=== PATIENT | male | born 1970 | race Caucasian/White ===

== ENCOUNTER 2019-03-15 13:13 | Emergency (ER) | payer OTHER ==
[2019-03-15 13:21] VITALS: BP 146/84
--- NOTE | 2019-03-15 13:37 | ED Physician Documentation ---
PD HPI UPPER EXT INJURY - Stated complaint Stated Complaint: LFT PRITI PX - Chief complaint Chief Complaint: Ext Problem - History obtained from History obtained from: Patient - History of Present Illness Location: Left (This is a right-handed gentleman who works at an [employer]. He works in the [employer] department. A tire was falling today and he caught it with his left arm and since then has had moderate pain across the top and the back of the left shoulder with difficulty moving it. He declines pain medication initial evaluation. He has no history of problems with the left shoulder.) Review of Systems Constitutional: reports: Reviewed and negative Nose: reports: Reviewed and negative Throat: reports: Reviewed and negative PD PAST MEDICAL HISTORY - Present Medications Home Medications: Ambulatory Orders Medication Instructions Recorded Confirmed Hydrocodone/Acetaminophen 1 - 2 each PO Q6H PRN #14 tablet 03/15/19 [Hydrocodon-Acetaminophen 5-325] - Allergies Allergies/Adverse Reactions: Allergies Allergy/AdvReac Type Severity Reaction Status Date / Time No Known Drug Allergies Allergy Verified 03/15/19 13:21 PD ED PE NORMAL - Vitals Vital signs reviewed: Yes - General General: Alert and oriented X 3, No acute distress - Extremities Extremities: Other (Left shoulder is without deformity. He has mild tenderness across the top and posterior of the left shoulder. He is able to abduct it to almost 90 degrees actively, further passively. He has positive supraspinatus testing and pain with forced internal and external rotation.) - Neuro Neuro: Alert and oriented X 3, Normal speech Results - Vitals Vitals: Vital Signs - 24 hr 03/15/19 13:17 Temperature 36.3 C L Heart Rate 79 Respiratory 16 Rate Blood Pressure 146/84 H O2 Saturation 99 Oxygen O2 Source Room air - Rads (name of study) L shoulder 3v Radiology: EMP read contemporaneously (normal) Departure - Departure Disposition: 01 Home, Self Care Clinical Impression: Injury of left rotator cuff Qualifiers: Encounter type: initial encounter Qualified Code(s): S46.002A - Unspecified injury of muscle(s) and tendon(s) of the rotator cuff of left shoulder, initial encounter Condition: Good Record reviewed to determine appropriate education?: Yes Instructions: ED Torn Rotator Cuff Follow-Up: [facility] [Provider Group] - Within 1 week Prescriptions: Hydrocodone/Acetaminophen [Hydrocodon-Acetaminophen 5-325] 1 - 2 each PO Q6H PRN #14 tablet PRN Reason: pain Comments: Do the exercises as discussed to prevent frozen shoulder. Return for new or worsening symptoms. Follow-up with the orthopedic surgeons, call Sunday for an appointment. You can take Tylenol or ibuprofen per package instructions for pain. Forms: Activity restrictions
--- NOTE | 2019-03-15 14:09 | XRAY Report ---
Reason: shoulder inkj Procedure Date: 03/15/2019 Accession Number: [id number] / [id number] Procedure: XR - Shoulder 3 View LT CPT Code: FULL RESULT: EXAM: LEFT SHOULDER RADIOGRAPHY EXAM DATE: 03/15/2019 01:54 PM. CLINICAL HISTORY: Shoulder injury with pain COMPARISON: None. TECHNIQUE: 3 views. FINDINGS: Bones: Normal. No fracture or bone lesion. Joints: The glenohumeral and acromioclavicular joints are normal. Soft tissues: The visualized hemithorax is unremarkable. No soft tissue swelling. IMPRESSION: Negative. RADIA
== END 2019-03-15 14:44 | disposition home or self-care (01) ==
LOC: ED 13:13
DX: S46.002A Unspecified injury of muscle(s) and tendon(s) of the rotator cuff of left shoulder, initial encounter (principal); X50.1XXA Overexertion from prolonged static or awkward postures, initial encounter; Y93.89 Activity, other specified; Y99.0 Civilian activity done for income or pay
CPT/HCPCS: 1040M; 73030; 99283

== ENCOUNTER 2019-08-08 16:21 | Emergency (ER) | payer OTHER ==
[2019-08-08 16:41] VITALS: BP 134/74
[2019-08-08] MEDS ORDERED: traMADol 50 MG TABLET PO STA (17:01)
--- NOTE | 2019-08-08 17:07 | ED Physician Documentation ---
PD HPI UPPER EXT INJURY - Stated complaint Stated Complaint: SHOULDER PX - Chief complaint Chief Complaint: Ext Problem - History obtained from History obtained from: Patient, Family () - History of Present Illness Location: Left, Shoulder Timing - onset: Today Worsened by: Moving Associated symptoms: Numbness. No: Weakness Similar symptoms before: Diagnosis (Left rotator cuff injury.) - Additonal information Additional information: The patient is a 48-year-old male who presents with pain in his left shoulder. He initially injured it 5 months ago when he caught a falling tire with his left arm. He was diagnosed with rotator cuff injury at that time. He has since been undergoing physical therapy, with some improvement. He reinjured it 3 weeks ago while at work. Today he was buckling his belt when he developed recurrent pain in his shoulder, and it has persisted since that time. He had tingling in his fingers initially, but that has since resolved. He is right hand dominant. Review of Systems Constitutional: denies: Fever Nose: denies: Congestion Cardiac: denies: Chest pain / pressure Respiratory: denies: Dyspnea Musculoskeletal: reports: Joint pain (Left shoulder.). denies: Neck pain, Back pain Neurologic: denies: Focal weakness, Numbness, Headache PD PAST MEDICAL HISTORY - Past Medical History Musculoskeletal: Other (Left rotator cuff injury.) - Past Surgical History Past Surgical History: No - Present Medications Home Medications: Ambulatory Orders Medication Instructions Recorded Confirmed Hydrocodone/Acetaminophen 1 - 2 each PO Q6H PRN #14 tablet 03/15/19 [Hydrocodon-Acetaminophen 5-325] traMADol [Ultram] 50 mg PO Q4-6H #20 tablet 08/08/19 - Allergies Allergies/Adverse Reactions: Allergies Allergy/AdvReac Type Severity Reaction Status Date / Time No Known Drug Allergies Allergy Verified 08/08/19 16:25 - Social History Does the pt smoke?: No Smoking Status: Never smoker Does the pt drink ETOH?: Yes Does the pt have substance abuse?: No PD ED PE NORMAL - Vitals Vital signs reviewed: Yes (Borderline systolic hypertension initially.) - General General: Alert and oriented X 3, Well developed/nourished - HEENT HEENT: Atraumatic - Neck Neck: No bony TTP, No adenopathy - Cardiac Cardiac: RRR - Respiratory Respiratory: No respiratory distress, Clear bilaterally - Abdomen Abdomen: Soft, Non tender - Derm Derm: No rash - Extremities Extremities: Other (There is tenderness to palpation over the anterior aspect of the left shoulder, along the joint line. The patient can actively elevate his arm to 90, and allows passive range of motion an additional 20. Distal neurovascular is intact.) - Neuro Neuro: Alert and oriented X 3, No motor deficit, No sensory deficit Results - Vitals Vitals: Oxygen O2 Source Room air PD MEDICAL DECISION MAKING - ED course Complexity details: reviewed old records, considered differential, d/w patient, d/w family ED course: The patient's presentation is most consistent with recurrent rotator cuff injury. There is no clinical indication to repeat x-rays of the shoulder at this time. MRI, which would be a better diagnostic tool for this entity, is not available for emergent studies. Treatment in the emergency department included administration of tramadol 50 mg orally. He is being discharged with prescription for tramadol, 20 tablets. I discussed with the him and his symptomatic treatment, orthopedic follow-up, as well as potentially worrisome signs or symptoms that should prompt reevaluation in the emergency department. He has an arm sling at home which he was aware if it provides comfort. Departure - Departure Disposition: Home, Self Care Clinical Impression: Injury of left rotator cuff Qualifiers: Encounter type: sequela Qualified Code(s): S46.002S - Unspecified injury of muscle(s) and tendon(s) of the rotator cuff of left shoulder, sequela Condition: Stable Instructions: ED Tendinitis Rotator Cuff Follow-Up: Jeremiah Donnelly MD [Provider Admit Priv/Credential] - Prescriptions: traMADol [Ultram] 50 mg PO Q4-6H #20 tablet Comments: Wear the arm sling if it provides comfort. Apply ice pack to your shoulder intermittently for the next several days. You can use Tylenol or ibuprofen for anti-inflammatory effect. You can use tramadol as prescribed if needed for pain. Follow-up with orthopedics within 1 to 2 weeks. Call to schedule an appointment. Return to the emergency department if increasing pain, or otherwise worsening symptoms. Forms: Activity restrictions Discharge Date/Time: 08/08/19 17:15
== END 2019-08-08 17:15 | disposition home or self-care (01) ==
LOC: ED 16:21
DX: S46.002A Unspecified injury of muscle(s) and tendon(s) of the rotator cuff of left shoulder, initial encounter (principal); X50.9XXA Other and unspecified overexertion or strenuous movements or postures, initial encounter; Y99.0 Civilian activity done for income or pay
CPT/HCPCS: 99282; 99283; A9270

== ENCOUNTER 2019-09-04 11:33 | Outpatient (CLI) | payer OTHER ==
[2019-09-04] MEDS ORDERED: BUFFERED LIDOCAINE 10 ML SYRINGE ONE (11:48)
[2019-09-04] MEDS ORDERED: IOTHALAMATE MEGLUMINE 50 ML VIAL ONE (11:49)
[2019-09-04] MEDS ORDERED: GADOBUTROL 10 MMOL/10 ML VIAL ONE (11:49)
[2019-09-04] MEDS ORDERED: BUFFERED LIDOCAINE 10 ML SYRINGE IU ONE (13:08)
[2019-09-04] MEDS ORDERED: IOTHALAMATE MEGLUMINE 50 ML VIAL IVP ONE (13:08)
[2019-09-04] MEDS ORDERED: GADOBUTROL 10 MMOL/10 ML VIAL IVP ONE (13:10)
--- NOTE | 2019-09-05 12:03 | XRAY Report ---
Reason: IMPINGEMENT SYNDROME Procedure Date: 09/04/2019 Accession Number: [id number] / [id number] Procedure: FL - Arthrogram Needle Placement CPT Code: FULL RESULT: EXAM: LEFT SHOULDER ARTHROGRAPHIC INJECTION WITH FLUOROSCOPIC GUIDANCE EXAM DATE: 09/04/2019 01:11 PM. CLINICAL HISTORY: Impingement syndrome. COMPARISON: ARTHROGRAM SHOULDER LT 09/04/2019 12:35 PM. TECHNIQUE: The risks, benefits, and alternatives of the procedure were discussed with the patient. All questions were answered. Written and verbal consent were obtained. The glenohumeral joint was marked under fluoroscopy and prepped and draped in a sterile manner. Local anesthesia was performed with 1% lidocaine. A 22-gauge needle was then inserted into the glenohumeral joint. 10 mL of a solution containing 25% 1% lidocaine, 25% iodinated contrast, and a 1:200 dilution of gadolinium contrast in sterile saline was then injected. The needle was removed without immediate complication. Other: None. Fluoroscopy Time: 0.1 minutes. Number of Images: 8. FINDINGS: Bones and joints: No fracture or subluxation. Injection: Fluoroscopic images demonstrate needle placement and contrast in the glenohumeral joint. No contrast extravasation outside of the glenohumeral joint. IMPRESSION: Successful fluoroscopically guided arthrographic injection of the shoulder. RADIA
--- NOTE | 2019-09-05 13:00 | MRI Report ---
Reason: IMPINGEMENT SYNDROME Procedure Date: 09/04/2019 Accession Number: [id number] / [id number] Procedure: MRI - Arthrogram Shoulder LT CPT Code: FULL RESULT: EXAM: LEFT SHOULDER MRI ARTHROGRAM WITH CONTRAST EXAM DATE: 09/04/2019 12:57 PM. CLINICAL HISTORY: IMPINGEMENT SYNDROME. COMPARISON: Left shoulder radiographs 03/15/2019.. TECHNIQUE: Multiplanar, multisequence T1-weighted and fluid-sensitive sequences of the shoulder after an arthrographic injection of dilute gadolinium, dictated under a separate exam. Other: None. FINDINGS: Acromioclavicular Region: The acromion is type II. Minimal degenerative changes of the acromioclavicular joint, with small inferior marginal osteophytes and foci of subchondral edema at the distal clavicle. The coracoacromial and coracoclavicular ligaments are intact. Trace fluid within the subacromial-subdeltoid bursa. Glenohumeral Region: No subluxation. No loose bodies. The articular cartilage is unremarkable. The glenohumeral ligaments and joint capsule are unremarkable. Bone Marrow: No fracture, marrow edema or bone lesions. Labrum: The labrum is unremarkable. Biceps Tendon: The long head of the biceps tendon and biceps zara are intact. Musculature/Rotator Cuff: Moderate supraspinatus and infraspinatus tendinosis at the insertion. No tear. Teres minor and subscapularis are normal. No edema or fatty atrophy. Other: The subcutaneous tissues are unremarkable. IMPRESSION: 1. Moderate supraspinatus and infraspinatus tendinosis without tear. 2. Intact labrum. 3. Normal biceps tendon. 4. Trace fluid within the subacromial-subdeltoid bursa may reflect mild bursitis. RADIA
== END 2019-09-04 11:34 | disposition home or self-care (01) ==
LOC: DI 11:33
PROVIDERS: ATTEND Orthopaedic Surgery
DX: M67.912 Unspecified disorder of synovium and tendon, left shoulder (principal)
CPT/HCPCS: 23350; 73222; 77002; A9585; Q9961

== ENCOUNTER 2021-07-02 12:19 | Outpatient (CLI) | payer OTHER ==
--- NOTE | 2021-07-02 13:10 | XRAY Report ---
PROCEDURE: Shoulder 3 View LT INDICATIONS: LEFT SHOULDER INPINGEMENT TECHNIQUE: 4 views of the shoulder were acquired. COMPARISON: 03/15/2019 FINDINGS: Bones: No fractures or dislocations. No suspicious bony lesions. Visualized ribs appear intact. Soft tissues: No suspicious soft tissue calcifications. IMPRESSION: Unremarkable left shoulder radiographs Reviewed by: Pino Jason MD on 07/02/2021 12:09 PM LISY Approved by: Pino Jason MD on 07/02/2021 12:09 PM [place] Station ID: [id number]
== END 2021-07-02 12:20 | disposition home or self-care (01) ==
LOC: DI.N 12:19
PROVIDERS: ATTEND Physician Assistant
DX: M75.42 Impingement syndrome of left shoulder (principal)

== ENCOUNTER 2022-05-30 08:00 | Outpatient (CLI) | payer OTHER ==
--- NOTE | 2022-05-30 17:24 | XRAY Report ---
PROCEDURE: Shoulder 3 View LT INDICATIONS: SHOULDER PX TECHNIQUE: 4 views of the shoulder were acquired. COMPARISON: 07/02/2021 FINDINGS: Bones: No fractures or dislocations. Mild degenerative changes including AC joint space loss and sl ight spurring. No suspicious bony lesions. There is spurring of the glenoid fossa. Visualized ribs a ppear intact. Soft tissues: Punctate calcification posteriorly adjacent to the greater tuberosity. IMPRESSION: 1. Tiny calcification adjacent to the greater tuberosity is new since the prior study and may indicat e calcific tendinitis. 2. Degenerative spurring of the glenoid fossa. No change compared to prior. Reviewed by: Sandra Hayes MD on 05/30/2022 5:23 PM PDT Approved by: Sandra Hayes MD on 05/30/2022 5:23 PM PDT Station ID: [id number]
== END 2022-05-30 23:59 | disposition home or self-care (01) ==
LOC: DI.WOS 08:00
PROVIDERS: ATTEND Physician Assistant
DX: M25.712 Osteophyte, left shoulder (principal); M25.812 Other specified joint disorders, left shoulder